=== PATIENT | female | born 1960 | race African-American/Black ===

== ENCOUNTER 2018-08-03 08:15 | Emergency (ER) | payer OTHER ==
[~2018-08-03] VITALS: Ht 166.4 cm; Wt 86.8 kg
--- NOTE | 2018-08-03 08:53 | RAD ---
Chest, 2 views, 08/03/2018: HISTORY: Shortness of breath The heart size and pulmonary vascularity are normal. No pulmonary infiltrate is seen. There is no evidence of pleural fluid. There is a minimal thoracic scoliosis with mild scattered degenerative changes. IMPRESSION: No acute cardiopulmonary abnormality is detected. Electronically signed by: Raj More MD (08/03/2018 8:50 AM) [facility]
--- NOTE | 2018-08-03 09:00 | PHYS DOC ---
Past History Past Medical History: Anxiety, High Cholesterol, Hypertension Past Surgical History: Hysterectomy Alcohol Use: None Drug Use: None Adult General Chief Complaint Chief Complaint: CHEST PAIN HPI HPI 58-year-old female presents with chest tightness and shortness of breath. The patient tells me she has had intermittent chest pains that move around her chest and back for some time. Today she had a similar episode that lasted for less than 5 minutes. It was on the left side of her sternum. She describes the pain is a tension and a fairly localized area. She was not exerting herself when this occurred. It has resolved at this time. The patient is also very concerned she has untreated COPD. She was diagnosed with this at one point. She went to a caregiver assisted living recently her that she has some asthma, but not COPD. They did not advise any maintenance treatment. The patient is unhappy about this. He still feels like she is short of breath most of the time. She has refused to take a cardiac stress test because she thinks that her breathing issues need to be addressed first. She denies worsening chest pain with exertion. She does have decreased exercise tolerance. She denies fever or chills. Review of Systems Review of Systems Constitutional: Denies fever or chills [] Eyes: Denies change in visual acuity, redness, or eye pain [] HENT: Denies nasal congestion or sore throat [] Respiratory: shortness of breath [] Cardiovascular: No additional information not addressed in HPI [] GI: Denies abdominal pain, nausea, vomiting, bloody stools or diarrhea [] : Denies dysuria or hematuria [] Musculoskeletal: Denies back pain or joint pain [] Integument: Denies rash or skin lesions [] Neurologic: Denies headache, focal weakness or sensory changes [] Endocrine: Denies polyuria or polydipsia [] All other systems were reviewed and found to be within normal limits, except as documented in this note. Allergies Allergies Allergies Coded Allergies Type Severity Reaction Last Updated Verified Fish Containing Products Allergy Intermediate NAUSEA AND VOMITING 05/14/15 Yes shellfish derived Allergy Intermediate NAUSEA AND VOMITING 05/14/15 Yes sulfamethoxazole Allergy Intermediate vomiting, diarrhea 05/13/15 Yes trimethoprim Allergy Intermediate vomiting, diarrhea 05/13/15 Yes Physical Exam Physical Exam Constitutional: Well developed, well nourished, no acute distress, non-toxic appearance. [] HENT: Normocephalic, atraumatic, bilateral external ears normal, oropharynx moist, no oral exudates, nose normal. [] Eyes: PERRLA, EOMI, conjunctiva normal, no discharge. [] Neck: Normal range of motion, no tenderness, supple, no stridor. [] Cardiovascular:Heart rate regular rhythm, no murmur [] Lungs & Thorax: Bilateral breath sounds clear to auscultation [] Abdomen: Bowel sounds normal, soft, no tenderness, no masses, no pulsatile masses. [] Skin: Warm, dry, no erythema, no rash. [] Back: No tenderness, no CVA tenderness. [] Extremities: No tenderness, no cyanosis, no clubbing, ROM intact, no edema. [] Neurologic: Alert and oriented X 3, normal motor function, normal sensory function, no focal deficits noted. [] Psychologic: Affect normal, judgement normal, mood normal. [] EKG EKG Sinus rhythm, rate 93, normal axis, no ST elevations or depressions.[] Radiology/Procedures Radiology/Procedures [] Impressions: Chest, 2 views, 08/03/2018: HISTORY: Shortness of breath The heart size and pulmonary vascularity are normal. No pulmonary infiltrate is seen. There is no evidence of pleural fluid. There is a minimal thoracic scoliosis with mild scattered degenerative changes. IMPRESSION: No acute cardiopulmonary abnormality is detected. Electronically signed by: Raj More MD (08/03/2018 8:50 AM) [facility] DICTATED AND SIGNED BY: RAJ MORE MD DATE: 08/03/18 3700 CC: IVAN KWON DO; JULIO DESAI ~ Course & Med Decision Making Course & Med Decision Making Pertinent Labs and Imaging studies reviewed. (See chart for details) The patient's labs are unremarkable. She does have a slightly low potassium at 3.3. Her troponin is negative. Her EKG is unremarkable. Her chest x-ray negative for acute findings. Her HEART score is 2. I'm not exactly sure why the patient is having a feeling of shortness of breath, but it does not appear to be a cu rrent life-threatening condition. I will advise that she continue to follow up with the specialist as referred. She is stable for discharge at this time. [] Dragon Disclaimer Dragon Disclaimer This electronic medical record was generated, in whole or in part, using a voice recognition dictation system. Departure Departure: Impression: Primary Impression: SOB (shortness of breath) Disposition: 01 HOME, SELF-CARE Condition: STABLE Referrals: JULIO DESAI (PCP) Patient Instructions: Shortness of Breath, [id number] IVAN KWON DO August 03, 2018 09:00
--- NOTE | 2018-08-03 09:29 | EKG ---
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
[2018-08-03 09:35] LABS: ALBUMIN 3.5 g/dL (3.4-5.0); ALBUMIN/GLOBULIN RATIO 0.8 (1.0-1.7); CALCIUM 9.6 mg/dL (8.5-10.1); CREATININE 1.2 mg/dL (0.6-1.0); GFR 55.8; POTASSIUM 3.2 mmol/L (3.5-5.1); TOTAL BILIRUBIN 0.3 mg/dL (0.2-1.0); TOTAL PROTEIN 7.9 g/dL (6.4-8.2)
[2018-08-03 09:48] LABS: BASO # 0.1 x10^3/uL (0.0-0.2); BASO % 1 % (0-3); EOS # 0.1 x10^3/uL (0.0-0.7); EOS % 2 % (0-3); HEMATOCRIT 42.8 % (36.0-47.0); HEMOGLOBIN 14.5 g/dL (12.0-15.5); LYMPH # 2.3 x10^3/uL (1.0-4.8); LYMPH % 34 % (24-48); MEAN CORPUSCULAR HEMOGLOBIN 29 pg (25-35); MEAN CORPUSCULAR HGB CONC 34 g/dL (31-37); MEAN CORPUSCULAR VOLUME 87 fL (79-100); MONO # 0.4 x10^3/uL (0.0-1.1); MONO % 6 % (0-9); NEUT % 58 % (31-73); PLATELET COUNT 345 x10^3/uL (140-400); RED BLOOD COUNT 4.93 x10^6/uL (3.50-5.40); WHITE BLOOD COUNT 6.9 x10^3/uL (4.0-11.0)
[2018-08-03 10:34] VITALS: BP 129/89
== END 2018-08-03 10:34 | disposition home or self-care (01) ==
LOC: ER 08:15
DX: R06.02 Shortness of breath (principal); R07.89 Other chest pain; F41.9 Anxiety disorder, unspecified; E78.00 Pure hypercholesterolemia, unspecified; I10 Essential (primary) hypertension; Z88.2 Allergy status to sulfonamides; Z88.1 Allergy status to other antibiotic agents; Z91.013 Allergy to seafood
CPT/HCPCS: 36415; 71046; 80053; 83880; 84484; 85025; 93005; 99285

== ENCOUNTER 2018-10-23 20:16 | Emergency (ER) | payer OTHER ==
[~2018-10-23] VITALS: Ht 166.4 cm; Wt 86.8 kg
[2018-10-23] MEDS ORDERED: KETOROLAC 30 MG/ML VIAL. ONE (20:44)
[2018-10-23] MEDS ORDERED: KETOROLAC 15 MG/ML VIAL. IV ONE (20:45)
[2018-10-23] MEDS ORDERED: IV NORMAL SALINE 1,000ML 1,000 ML IV ONE (20:45)
[2018-10-23 20:52] LABS: BASO # 0.1 x10^3/uL (0.0-0.2); BASO % 1 % (0-3); EOS # 0.2 x10^3/uL (0.0-0.7); EOS % 3 % (0-3); HEMATOCRIT 41.5 % (36.0-47.0); HEMOGLOBIN 13.8 g/dL (12.0-15.5); LYMPH # 4.1 x10^3/uL (1.0-4.8); LYMPH % 44 % (24-48); MEAN CORPUSCULAR HEMOGLOBIN 30 pg (25-35); MEAN CORPUSCULAR HGB CONC 33 g/dL (31-37); MEAN CORPUSCULAR VOLUME 89 fL (79-100); MONO # 0.8 x10^3/uL (0.0-1.1); MONO % 8 % (0-9); NEUT # 4.1 x10^3uL (1.8-7.7); NEUT % 44 % (31-73); PLATELET COUNT 351 x10^3/uL (140-400); RED BLOOD COUNT 4.64 x10^6/uL (3.50-5.40); RED CELL DISTRIBUTION WIDTH 14.1 % (11.5-14.5); WHITE BLOOD COUNT 9.2 x10^3/uL (4.0-11.0)
[2018-10-23 21:14] LABS: BILIRUBIN,URINE NEG (NEG); CLARITY,URINE CLEAR; COLOR,URINE YELLOW; GLUCOSE,URINE NEG (NEG); NITRITE,URINE NEG (NEG); UROBILINOGEN,URINE 0.2 mg/dL (0.2 mg/dL)
[2018-10-23 21:15] LABS: ALBUMIN 3.4 g/dL (3.4-5.0); ALBUMIN/GLOBULIN RATIO 0.9 (1.0-1.7); CREATININE 1.2 mg/dL (0.6-1.0); GFR 55.8; MAGNESIUM 2.1 mg/dL (1.8-2.4); POTASSIUM 3.5 mmol/L (3.5-5.1); TOTAL BILIRUBIN 0.1 mg/dL (0.2-1.0); TOTAL PROTEIN 7.2 g/dL (6.4-8.2)
[2018-10-23 21:15] LABS: BACTERIA,URINE FEW /HPF (0-FEW); RBC,URINE RARE /HPF (0-2); SQUAMOUS EPITHELIAL CELL,UR FEW /LPF; WBC,URINE OCC /HPF (0-4)
--- NOTE | 2018-10-23 21:53 | PHYS DOC ---
Past History Past Medical History: Asthma, COPD, High Cholesterol, Hypertension Past Surgical History: Hysterectomy Smoking: Non-smoker Alcohol Use: Occasionally Drug Use: None Adult General Chief Complaint Chief Complaint: CHEST PAIN HPI HPI 58 y/o female presents with history of right sided chest pain with radiation to back and into right jaw which started prior to arrival. Describes pain as sharp in nature. Denies SOA. Denies diaphoresis or nausea/vomiting. Denies trauma. Denies rash. Denies leg swelling or calf tenderness. Reports cardiac risk factors of HTN and hyperlipidemia. Denies history or family history of PE/DVT. Denies recent surgery or use of estrogen medications. Denies pleuritic pain. Patient reports she took at 324mg ASA earlier today. Review of Systems Review of Systems Constitutional: Denies fever or chills Eyes: Denies redness or eye pain HENT: Denies nasal congestion or sore throat Respiratory: Denies cough or shortness of breath Cardiovascular: Reports chest pain; denies palpitations GI: Denies abdominal pain, nausea, or vomiting : Denies dysuria or hematuria Musculoskeletal: Reports back pain; denies extremity pain Integument: Denies rash or skin lesions Neurologic: Denies headache, focal weakness or sensory changes Complete systems were reviewed and found to be within normal limits, except as documented in this note. Current Medications Current Medications Current Medications Medications (Trade) Dose Ordered Sig/Timoteo Start Time Stop Time Status Last Admin Dose Admin Ketorolac Tromethamine (Toradol 15mg Vial) 15 mg 1X ONCE 10/23/18 20:45 10/23/18 20:49 DC 10/23/18 20:50 15 MG Ketorolac Tromethamine (Toradol 30mg Vial) 30 mg STK-MED ONCE 10/23/18 20:44 10/23/18 20:44 DC Sodium Chloride 1,000 ml @ 1,000 mls/hr 1X ONCE 10/23/18 20:45 10/23/18 21:44 DC 10/23/18 20:50 1,000 MLS/HR Allergies Allergies Allergies Coded Allergies Type Severity Reaction Last Updated Verified Fish Containing Products Allergy Intermediate NAUSEA AND VOMITING 05/14/15 Yes shellfish derived Allergy Intermediate NAUSEA AND VOMITING 05/14/15 Yes sulfamethoxazole Allergy Intermediate vomiting, diarrhea 05/13/15 Yes trimethoprim Allergy Intermediate vomiting, diarrhea 05/13/15 Yes Physical Exam Physical Exam Constitutional: Well developed, well nourished, no acute distress, non-toxic appearance HENT: Normocephalic, atraumatic, oropharynx moist Eyes: Conjunctiva normal, no discharge Neck: Normal range of motion, no tenderness, supple Cardiovascular: Heart rate normal, regular rhythm Lungs & Thorax: Bilateral breath sounds clear to auscultation, no wheezing Abdomen: Soft, no tenderness Skin: Warm, dry, no erythema, no rash Back: No tenderness, no CVA tenderness Extremities: No tenderness, ROM intact, no edema Neurologic: Alert and oriented X 3, normal motor function, normal sensory function, no focal deficits noted Psychologic: Affect normal, judgement normal Current Patient Data Vital Signs Vital Signs Date Time Temp Pulse Resp B/P (MAP) Pulse Ox O2 Delivery O2 Flow Rate FiO2 10/23/18 20:20 98.3 72 20 100 Room Air Lab Results Laboratory Tests Test 10/23/18 20:36 10/23/18 20:50 White Blood Count 9.2 x10^3/uL (4.0-11.0) Red Blood Count 4.64 x10^6/uL (3.50-5.40) Hemoglobin 13.8 g/dL (12.0-15.5) Hematocrit 41.5 % (36.0-47.0) Mean Corpuscular Volume 89 fL (79-100) Mean Corpuscular Hemoglobin 30 pg (25-35) Mean Corpuscular Hemoglobin Concent 33 g/dL (31-37) Red Cell Distribution Width 14.1 % (11.5-14.5) Platelet Count 351 x10^3/uL (140-400) Neutrophils (%) (Auto) 44 % (31-73) Lymphocytes (%) (Auto) 44 % (24-48) Monocytes (%) (Auto) 8 % (0-9) Eosinophils (%) (Auto) 3 % (0-3) Basophils (%) (Auto) 1 % (0-3) Neutrophils # (Auto) 4.1 x10^3uL (1.8-7.7) Lymphocytes # (Auto) 4.1 x10^3/uL (1.0-4.8) Monocytes # (Auto) 0.8 x10^3/uL (0.0-1.1) Eosinophils # (Auto) 0.2 x10^3/uL (0.0-0.7) Basophils # (Auto) 0.1 x10^3/uL (0.0-0.2) Prothrombin Time 9.3 SEC (9.4-11.4) L Prothrombin Time INR 0.9 (0.9-1.1) Activated Partial Thromboplast Time 26 SEC (23-33) D-Dimer (Tara) 0.28 mg/L (0.00-0.50) Sodium Level 141 mmol/L (136-145) Potassium Level 3.5 mmol/L (3.5-5.1) Chloride Level 105 mmol/L (98-107) Carbon Dioxide Level 30 mmol/L (21-32) Anion Gap 6 (6-14) Blood Urea Nitrogen 13 mg/dL (7-20) Creatinine 1.2 mg/dL (0.6-1.0) H Estimated GFR (Cockcroft-Gault) 55.8 BUN/Creatinine Ratio 11 (6-20) Glucose Level 143 mg/dL (70-99) H Calcium Level 9.0 mg/dL (8.5-10.1) Magnesium Level 2.1 mg/dL (1.8-2.4) Total Bilirubin 0.1 mg/dL (0.2-1.0) L Aspartate Amino Transferase (AST) 20 U/L (15-37) Alanine Aminotransferase (ALT) 39 U/L (14-59) Alkaline Phosphatase 91 U/L (46-116) Creatine Kinase 227 U/L (26-192) H Creatine Kinase MB (Mass) 1.8 ng/mL (0.0-3.6) Creatine Kinase MB Relative Index 0.8 % (0-4) Troponin I Quantitative < 0.017 ng/mL (0-0.055) IU-Bgn-V-Type Natriuretic Peptide 15 pg/mL (0-124) Total Protein 7.2 g/dL (6.4-8.2) Albumin 3.4 g/dL (3.4-5.0) Albumin/Globulin Ratio 0.9 (1.0-1.7) L Lipase 149 U/L (73-393) Urine Collection Type Unknown Urine Color Yellow Urine Clarity Clear Urine pH 7.0 Urine Specific [place] 1.020 Urine Protein Neg (NEG-TRACE) Urine Glucose (UA) Neg mg/dL (NEG) Urine Ketones (Stick) Neg mg/dL (NEG) Urine Blood Neg (NEG) Urine Nitrite Neg (NEG) Urine Bilirubin Neg (NEG) Urine Urobilinogen Dipstick 0.2 mg/dL (0.2 mg/dL) Urine Leukocyte Esterase Neg (NEG) Urine RBC Rare /HPF (0-2) Urine WBC Occ /HPF (0-4) Urine Squamous Epithelial Cells Few /LPF Urine Bacteria Few /HPF (0-FEW) EKG EKG @2024 NSR at 80bpm, NO ST elevation, wandering baseline Radiology/Procedures Radiology/Procedures PROCEDURE: CHEST PA & LATERAL Exam: Chest 2 views INDICATION: Chest pain TECHNIQUE: Frontal and lateral views the chest Comparisons: 08/03/2018 FINDINGS: The cardiomediastinal silhouette and pulmonary vessels are within normal limits. The lung and pleural spaces are clear. IMPRESSION: No acute cardiopulmonary process. Electronically signed by: Bree Ramirez MD (10/23/2018 10:39 PM) [facility] Course & Med Decision Making Course & Med Decision Making Pertinent Labs and Imaging studies reviewed. (See chart for details) Patient presents with atypical right-sided chest pain which is sharp in nature and radiates to patient's back and right jaw. Patient denies trauma. Denies diaphoresis, shortness of air, nausea or vomiting. EKG stable. Labs obtained and posted to chart. D-dimer within normal limits. Troponin �2 negative. Chest x-ray stable. Heart score 3. Patient offered observation admission for further evaluation and treatment. Patient elects to be discharged home with close follow-up with her PCP. Patient stable for discharge with outpatient follow-up with PCP. Discussed findings and plan with patient and family, who acknowledge understanding and agreement. Dragon Disclaimer Dragon Disclaimer This electronic medical record was generated, in whole or in part, using a voice recognition dictation system. Departure Departure: Impression: Primary Impression: Atypical chest pain Disposition: 01 HOME, SELF-CARE Condition: STABLE Referrals: JULIO DESAI (PCP) Patient Instructions: Chest Pain (Nonspecific), Pusi-yj-Aula HEART Score for Chest Pain PTs The HEART Score for CP Pts HEART Score for Chest Pain: HEART Score for Chest Pain Response (Comments) Value History Moderately Suspicious 1 ECG Normal 0 Age >45 - < 65 1 Risk Factors 1 or 2 Risk Factors 1 Troponin < Normal Limit 0 Total 3 Risk Factors: Risk Factors: DM, Current or recent (<one month) smoker, HTN, HLP, family history of CAD, obesity. Risk Scores: Score 0 - 3: 2.5% MACE over next 6 weeks - Discharge Home Score 4 - 6: 20.3% MACE over next 6 weeks - Admit for Clinical Observation Score 7 - 10: 72.7% MACE over next 6 weeks - Early Invasive Strategies ALFONSO ROBBINS DO Oct 23, 2018 21:53
--- NOTE | 2018-10-23 22:42 | RAD ---
Exam: Chest 2 views INDICATION: Chest pain TECHNIQUE: Frontal and lateral views the chest Comparisons: 08/03/2018 FINDINGS: The cardiomediastinal silhouette and pulmonary vessels are within normal limits. The lung and pleural spaces are clear. IMPRESSION: No acute cardiopulmonary process. Electronically signed by: Bree Ramirez MD (10/23/2018 10:39 PM) [facility]
[2018-10-23] MEDS ORDERED: ACETAMINOPHEN 500 MG TABLET PO ONE (22:45)
[2018-10-24 00:01] VITALS: BP 127/83
--- NOTE | 2018-10-24 02:34 | EKG ---
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 Electronically Signed On 10-27-2018 10:02:17 CDT by Giles Matthews
== END 2018-10-24 00:02 | disposition home or self-care (01) ==
LOC: ER 20:16
DX: R07.89 Other chest pain (principal); J44.9 Chronic obstructive pulmonary disease, unspecified; E78.00 Pure hypercholesterolemia, unspecified; I10 Essential (primary) hypertension; E78.5 Hyperlipidemia, unspecified; Z88.2 Allergy status to sulfonamides; Z88.1 Allergy status to other antibiotic agents; Z91.018 Allergy to other foods
CPT/HCPCS: 36415; 71046; 80053; 81001; 82553; 83690; 83735; 83880; 84484; 85025; 85379; 85610; 85730; 93005; 96374; 99285; J1885; J7030

== ENCOUNTER → 2019-11-14 | Outpatient (CLI) | payer OTHER ==
--- NOTE | 2019-11-14 08:55 | RAD ---
EXAM: CT Head without IV contrast INDICATION: Reason: LEFT SIDE HEADACHE / Spl. Instructions: / History: TECHNIQUE: Multi-detector row CT images were obtained of the head without the use of IV contrast. All CT scans performed at this facility utilize dose optimization techniques as appropriate to the exam, including the following: Automated exposure control and adjustment of the mA and/or KV according to patient size (this includes techniques or standardized protocols for targeted exams where dose is indication/reason for exam). COMPARISON: None FINDINGS: BRAIN PARENCHYMA: No evidence of acute intraparenchymal hemorrhage or infarct. No abnormal parenchymal density or mass. VENTRICLES & EXTRA-AXIAL SPACES: Ventricles are within normal limits. Basilar cisterns are patent. No pathologic extra-axial fluid collection or mass. ORBITS: Orbital contents are unremarkable. SINUSES: Visualized paranasal sinuses and mastoid air cells are clear. OSSEOUS & SOFT TISSUES: Calvarium and skull base are intact. IMPRESSION: Unremarkable CT of the head without contrast. Electronically signed by: Isha Valdez MD (11/14/2019 8:52 AM) [id number]
== END | disposition home or self-care (01) ==
LOC: CT 08:14
DX: R51 Headache (principal)
CPT/HCPCS: 70450

== ENCOUNTER → 2020-05-02 | Outpatient (CLI) | payer OTHER | LOC: LAB 07:43 | PROVIDERS: ATTEND Nurse Anesthetist, Certified Registered | DX: Z01.812 Encounter for preprocedural laboratory examination (principal); Z20.822 Contact with and (suspected) exposure to COVID-19 | CPT/HCPCS: U0003 ==

== ENCOUNTER → 2020-05-06 | Day surgery (SDC) | payer OTHER ==
[~2020-05-06] MED LIST: IPRATRPIUM/ALBUTEROL 0.5/2.5MG 3 ML NEBU. NEB PRN; IV RINGERS SOLUTION,LACTATED 1,000 ML IV SCH; LIDOCAINE 2% PF 5 ML VIAL. ONE; MIDAZOLAM HCL PF 2 MG/2 ML VIAL. IV ONE; OMEP20TA63 PO; ONDANSETRON PF 4 MG/2 ML VIAL. IV PRN; PROPOFOL 10,000 MCG/ML (20ML) VIAL IV ONE
[2020-05-06 11:18] VITALS: BP 119/75
--- NOTE | 2020-05-08 20:36 | PATHOLOGY ---
[facility] Accession Number: [id number] . 01 Material submitted: . PART A: colon - TRANSVERSE COLON POLYP. Modifiers: transverse PART B: colon - DESCENDING COLON POLYP. Modifiers: descending . 01 Clinical history: . SCREENING . 02 Diagnosis: A. Colonic mucosa, transverse colon polyp: - Pedunculated tubular adenoma. . B. Colonic mucosa, descending colon polyp: - Tubular adenoma. (JPM:[facility] 05/08/2020) [facility] 05/08/2020 0856 Local . 02 Comment: Sections of the transverse colon polyp reveal a pedunculated tubular adenoma. The base of the polyp is lined by normal colonic mucosa. There is no high-grade dysplasia or evidence of malignancy. . Sections of the descending colon polyp reveal a tubular adenoma showing no high-grade dysplasia or evidence of malignancy. (JPM:[facility] 05/08/2020) . 02 Electronically signed: . Sree Null MD, Pathologist NPI- [id number] . 01 Gross description: . A. The specimen is received in formalin, labeled "Tonia Timoteo, transverse colon polyp". Received is a segment of light brown tissue measuring 0.7 x 0.6 x 0.5 cm in greatest dimensions with an attached stalk measuring 0.7 cm in diameter by 0.4 cm in length. The surgical margin is inked. The specimen is bisected perpendicular to the margin and entirely submitted in cassette A1. . B. The specimen is received in formalin, labeled "Tonia Timoteo, descending colon polyp". Received is a segment of pale eaton tissue measuring 0.2 cm in maximum dimensions. The specimen is submitted entirely in cassette B1. ([facility]AA; 05/07/2020) QAC/QAC 05/07/2020 1716 Local . 02 Pathologist provided ICD-10: D12.3, D12.4 . 02 CPT . 494383, [id number] Specimen Comment: Report sent to / Performed at: 01 [facility] [address] [place] [address] [address], [place] [id number] MD Jayce Snell MD Phone: [phone] Performed at: 02 [facility] [address] [place], [place] [id number] MD Sree Null MD Phone: [phone]
== END | disposition home or self-care (01) ==
LOC: SURG 09:31
PROVIDERS: ATTEND Internal Medicine Gastroenterology
DX: Z12.11 Encounter for screening for malignant neoplasm of colon (principal); K57.30 Diverticulosis of large intestine without perforation or abscess without bleeding; K64.8 Other hemorrhoids; D12.3 Benign neoplasm of transverse colon; D12.4 Benign neoplasm of descending colon; J44.9 Chronic obstructive pulmonary disease, unspecified; Z91.013 Allergy to seafood; E78.5 Hyperlipidemia, unspecified; I10 Essential (primary) hypertension; F41.9 Anxiety disorder, unspecified; Z88.8 Allergy status to other drugs, medicaments and biological substances; Z79.899 Other long term (current) drug therapy; Z91.018 Allergy to other foods; Z88.1 Allergy status to other antibiotic agents; Z88.2 Allergy status to sulfonamides; Z87.440 Personal history of urinary (tract) infections
CPT/HCPCS: 45385; 88305; J2001; J2704; J7120

== ENCOUNTER → 2021-02-10 | Outpatient (CLI) | payer OTHER ==
[2020-05-06 11:18] VITALS: BP 119/75
[~2021-02-10] MED LIST changes: +IOHEXOL 240 MG/ML 50ML VIAL. ONE; +IOHEXOL 240 MG/ML 50ML VIAL. PO ONE; +IOHEXOL 300 MG/ML 75 ML VIAL. IV ONE; -IPRATRPIUM/ALBUTEROL 0.5/2.5MG 3 ML NEBU. NEB PRN; -IV RINGERS SOLUTION,LACTATED 1,000 ML IV SCH; -LIDOCAINE 2% PF 5 ML VIAL. ONE; -MIDAZOLAM HCL PF 2 MG/2 ML VIAL. IV ONE; -ONDANSETRON PF 4 MG/2 ML VIAL. IV PRN; -PROPOFOL 10,000 MCG/ML (20ML) VIAL IV ONE
--- NOTE | 2021-02-10 16:20 | RAD ---
Exam: CT abdomen/pelvis with intravenous contrast Indication: Left lower quadrant pain when stepping down. Comparison: None Technique: Helical CT imaging performed of the abdomen and pelvis after the intravenous administratio n of 75 mL Omnipaque 300 contrast. Sagittal and coronal reformats were obtained. One or more of the following individualized dose reduction techniques were utilized for this examinat ion: 1. Automated exposure control 2. Adjustment of the mA and/or kV according to patient size 3. Use of iterative reconstruction technique. Findings: Lower chest: Lung bases are clear. The heart is normal in size. Liver: Liver is normal in size. No focal lesion. Gallbladder/Biliary Tree: Normal. Pancreas: Normal. Spleen: Normal. Adrenal Glands: Normal. Kidneys/Ureters/Bladder: Kidneys are normal in size and enhance centrally. There is a 1.7 cm simple c yst in the inferior right renal pole. No hydronephrosis. Ureters and bladder are unremarkable. Reproductive Organs: Uterus is surgically absent. No adnexal mass. Stomach, small bowel, and colon: Stomach, small bowel, and appendix are normal. Mild sigmoid divertic ulosis without acute diverticulitis. Vasculature: Abdominal aorta is normal in caliber. Lymph Nodes: No lymphadenopathy. Peritoneum and retroperitoneum: No free fluid or free air. Bones: No acute osseous abnormality. Miscellaneous: No abdominal wall or inguinal hernia. IMPRESSION: 1. No acute abnormality. 2. Mild sigmoid diverticulosis. Electronically signed by: Kymberly Singh MD (02/10/2021 4:17 PM) [id number]
== END ==
LOC: CT 12:37
PROVIDERS: ATTEND Family Medicine
DX: K57.30 Diverticulosis of large intestine without perforation or abscess without bleeding (principal); N28.1 Cyst of kidney, acquired
CPT/HCPCS: 74177; Q9966; Q9967